=== PATIENT | male | born 1930 | race Caucasian/White ===

== ENCOUNTER 2017-02-20 19:33 | Emergency (ER) | payer MEDICARE, BC ==
[~2017-02-20 19:33] MED LIST: ASAB PO; DORZOLAMIDE2 % OP; FLOMAX4 PO; GLUCOTRO10 PO; GLUCOTROL5 PO; GLUCPH PO; GLUCPH8 PO; LIPITOR10 PO; LOPID6 PO; METAMUCIL CAN7 OZ PO; MULTIPLE VIT PO; TRAVATAN OPH
[2017-02-20 21:17] LABS: BASOPHILS 0.3 %; BASOPHILS ABSOLUTE 0.02 10/3/uL (0.0-0.16); EOSINOPHILS 1.5 %; EOSINOPHILS ABSOLUTE 0.11 10/3/uL (0.0-0.53); ER CBC TAT 0 Hrs 08 Mins; HEMATOCRIT 34.7 % (40.0-51.0); IMMATURE GRANULOCYTES 0.1 %; IMMATURE GRANULOCYTES ABSOLUTE 0.01 10/3/uL (0.0-0.11); LYMPHOCYTES 32.5 %; LYMPHOCYTES ABSOLUTE 2.38 10/3/uL (0.67-4.30); MEAN CORPUS HGB CONC 34.6 g/dL (32.0-36.0); MEAN CORPUSCULAR HEMOGLOB 32.3 pg (26.0-34.0); MEAN CORPUSCULAR VOLUME 93.5 fL (80-100); MEAN PLATELET VOLUME 10.1 fL (9.2-13.0); MONOCYTES 11.7 %; MONOCYTES ABSOLUTE 0.86 10/3/uL (0.21-1.20); NEUTROPHILS 53.9 %; NEUTROPHILS ABSOLUTE 3.94 10/3/uL (2.02-8.40); PLATELET COUNT 253 10/3/uL (150-400); RBC DISTRIBUTION WIDTH 12.5 % (12.0-16.0); RED CELL COUNT 3.71 10/6/uL (4.7-6.1); WHITE BLOOD CELLS 7.3 10/3/uL (4.5-10.5)
[2017-02-20 21:18] LABS: MANUAL DIFF NO %
[2017-02-20 21:24] LABS: INTERNATIONAL NORMAL RATI 1.1 UNITS (-); PARTIAL THROMBO TIME 26.7 SEC (22.5-37.2); PROTIME (NOT ORD) 14.3 SEC (12.0-14.5)
[2017-02-20 21:33] LABS: A/G RATIO 0.9 (0.7-1.9); ALBUMIN 3.4 G/DL (3.5-5.0); ALKALINE PHOSPHATASE 77 U/L (45-117); BUN (BLOOD UREA NITROGEN) 19 MG/DL (6-23); CALCIUM, SERUM 8.8 MG/DL (8.5-10.4); CHLORIDE, SERUM 102 MMOL/L (96-112); CO2 (CARBON DIOXIDE) 27 MMOL/L (24-34); CREATININE 1.28 MG/DL (0.70-1.30); GFR AFRICAN AMERICAN 58 ML/MIN (>=60); GFR NON AFRICAN AMERICAN 50 ML/MIN (>=60); GLOBULIN 3.8 G/DL (2.5-4.1); POTASSIUM, SERUM 3.8 MMOL/L (3.5-5.3); SGOT(AST) 19 U/L (5-40); SGPT(ALT) 16 U/L (5-65); SODIUM, SERUM 137 MMOL/L (135-148); TOTAL BILIRUBIN 0.3 MG/DL (0-1.2); TOTAL PROTEIN 7.2 G/DL (6.0-8.5)
[2017-02-20 21:34] LABS: DIRECT BILIRUBIN < 0.1 MG/DL (0.0-0.4); GLUCOSE, SERUM 144 MG/DL (60-99); INDIRECT BILIRUBIN(NOT ORDER) 0.2 MG/DL (0.1-0.9)
[2017-02-20 21:38] LABS: LACTATE 1.5 MMOL/L (0.3-2.4)
[2017-02-20 21:51] LABS: PROCALCITONIN < 0.05 ng/mL (<0.5)
[2017-02-20 22:12] LABS: ASCORBIC ACID (UR NOT ORDER) NEG (NEG); BILIRUBIN, URINE NEGATIVE (NEG); ER URINALYSIS TAT 0 Hrs 15 Mins; KETONE, URINE NEGATIVE (NEG); LEUKOCYTE ESTERASE(NOT OR NEG (NEG); NITRITE (URINE) NEG (NEG); WBC (NOT ORDERED) (RFLEX) < 1 (0-5)
[2017-03-05] MEDS ORDERED: PROSCAR5 PO (16:02)
[2017-03-05] MEDS ORDERED: ULTRAM50 PO (16:03)
[2017-03-05] MEDS ORDERED: PRILO PO (16:04)
== END 2017-02-20 23:21 | disposition home or self-care (01) ==
LOC: ER 19:33
PROVIDERS: Nurse Practitioner
DX: K40.90 Unilateral inguinal hernia, without obstruction or gangrene, not specified as recurrent (principal); K80.20 Calculus of gallbladder without cholecystitis without obstruction; E11.9 Type 2 diabetes mellitus without complications; D64.9 Anemia, unspecified; Z87.442 Personal history of urinary calculi; Z79.84 Long term (current) use of oral hypoglycemic drugs; Z79.82 Long term (current) use of aspirin; Z79.899 Other long term (current) drug therapy
CPT/HCPCS: 74176; 80053; 81001; 82248; 83605; 83690; 84145; 85025; 85610; 85730; 87040; 93005; 96374; 96375; 99284; J2405

== ENCOUNTER 2017-03-11 10:00 | Observation (INO) | payer MEDICARE, BC ==
[2017-03-08 08:15] LABS: BASOPHILS 0.2 %; BASOPHILS ABSOLUTE 0.02 10/3/uL (0.0-0.16); EOSINOPHILS 1.3 %; EOSINOPHILS ABSOLUTE 0.11 10/3/uL (0.0-0.53); HEMATOCRIT 37.4 % (40.0-51.0); HEMOGLOBIN 12.7 g/dL (13.6-17.8); IMMATURE GRANULOCYTES 0.1 %; IMMATURE GRANULOCYTES ABSOLUTE 0.01 10/3/uL (0.0-0.11); LYMPHOCYTES 33.6 %; LYMPHOCYTES ABSOLUTE 2.82 10/3/uL (0.67-4.30); MEAN CORPUSCULAR HEMOGLOB 31.8 pg (26.0-34.0); MEAN CORPUSCULAR VOLUME 93.7 fL (80-100); MEAN PLATELET VOLUME 10.6 fL (9.2-13.0); MONOCYTES 9.8 %; MONOCYTES ABSOLUTE 0.82 10/3/uL (0.21-1.20); NEUTROPHILS ABSOLUTE 4.62 10/3/uL (2.02-8.40); PLATELET COUNT 267 10/3/uL (150-400); RBC DISTRIBUTION WIDTH 12.4 % (12.0-16.0); RED CELL COUNT 3.99 10/6/uL (4.7-6.1); WHITE BLOOD CELLS 8.4 10/3/uL (4.5-10.5)
[2017-03-08 08:16] LABS: MANUAL DIFF NO %
[2017-03-08 08:40] LABS: A/G RATIO 1.2 (0.7-1.9); ALBUMIN 3.8 G/DL (3.5-5.0); ALKALINE PHOSPHATASE 74 U/L (45-117); BUN (BLOOD UREA NITROGEN) 15 MG/DL (6-23); CALCIUM, SERUM 9.3 MG/DL (8.5-10.4); CHLORIDE, SERUM 103 MMOL/L (96-112); CO2 (CARBON DIOXIDE) 30 MMOL/L (24-34); GFR AFRICAN AMERICAN 79 ML/MIN (>=60); GFR NON AFRICAN AMERICAN 68 ML/MIN (>=60); GLOBULIN 3.3 G/DL (2.5-4.1); GLUCOSE, SERUM 118 MG/DL (60-99); POTASSIUM, SERUM 4.5 MMOL/L (3.5-5.3); SGOT(AST) 17 U/L (5-40); SGPT(ALT) 18 U/L (5-65); SODIUM, SERUM 138 MMOL/L (135-148); TOTAL BILIRUBIN 0.5 MG/DL (0-1.2); TOTAL PROTEIN 7.1 G/DL (6.0-8.5)
--- NOTE | ~2017-03-11 | PREOPHP ---
PreOp History and Physical [address] [address] NAME: AIDEN ALEXANDER : 30 STATUS : PRE [facility] PAT#: [id number] AGE: 86 ADM/REG DATE : MR#: [id number] REPORT SERV DATE: 03/11/17 DICTATED BY: JACQUELINE GROSS III DATE: 03/03/17 REPORT STATUS : Draft TRANSCRIBED BY: MODL DATE: 03/03/17 HISTORY OF PRESENT ILLNESS: This 86-year-old male comes to the operating room for open repair of symptomatic right inguinal hernia. The patient complains of a right inguinal hernia. He noticed this after lifting a heavy garbage can on 02/20/2017. He required evaluation in the emergency room. The hernia was reduced, but he still has continued pain and discomfort associated with this hernia. He comes now for open right inguinal hernia repair. PAST MEDICAL HISTORY: 1. Diabetes mellitus. 2. Hypertension. 3. Hyperlipidemia. 4. Glaucoma. 5. Prostatic hypertrophy. 6. Right bundle-branch block. MEDICATIONS: Metformin; atorvastatin; aspirin; glipizide; tamsulosin; omeprazole; finasteride; and tramadol. ALLERGIES: NONE. PAST SURGICAL HISTORY: Includes hemorrhoidectomy. FAMILY HISTORY: Positive for diabetes and heart disease. SOCIAL HISTORY: No history of tobacco or alcohol use. REVIEW OF SYSTEMS: The patient's 14-point review of systems is otherwise unremarkable. PHYSICAL EXAMINATION: OBJECTIVE: GENERAL: This is a male, in no acute distress. He is alert and oriented x3. VITAL SIGNS: Blood pressure 107/62, pulse 88, and temperature 97.7. HEENT: Unremarkable. NEUROLOGIC: Cranial nerves 2 through 12 are normal. LUNGS: Clear. CARDIAC: Normal. ABDOMEN: Soft. Nontender. No masses. In the right groin is a moderate size inguinal hernia. This is reducible. The left groin is normal. EXTREMITIES: Normal with no edema. LABORATORY DATA: CT scan of the abdomen and pelvis confirms a right inguinal hernia. ASSESSMENT: 1. An 86-year-old male with symptomatic right inguinal hernia, with recent transient PreOp History and Physical [address] [address] NAME: AIDEN ALEXANDER : 30 STATUS : PRE [facility] PAT#: [id number] AGE: 86 ADM/REG DATE : MR#: [id number] REPORT SERV DATE: 03/11/17 DICTATED BY: JACQUELINE GROSS III DATE: 03/03/17 REPORT STATUS : Draft TRANSCRIBED BY: SARAH DATE: 03/03/17 incarceration requiring evaluation in the emergency room. 2. Diabetes mellitus. 3. Arthritis. 4. Hyperlipidemia. 5. Hypertension. 6. Prostatic hypertrophy. 7. Right bundle-branch block. PLAN: The patient comes to the operating room now for open right inguinal hernia repair. This procedure, the risks, benefits, and alternatives, including not limited to the risk for bleeding, infection, pain, swelling, scarring, or deformity to the area, seroma formation, hematoma formation, recurrence of the hernia, nerve injury, chronic paresthesia, pain in the thigh, scrotum, or groin, chronic neuralgia or neuroma, and unforeseen complications including deep venous thrombosis, pulmonary embolus, myocardial infarction, stroke, pneumonia, , have been explained to the patient prior to surgery. The expected length of recovery has been explained. The possibility of urinary retention has been explained. The patient's questions have been answered. He clearly understands the risks and agrees to the surgery as planned. RHValdemar/SARAH Jacqueline Gross III, M.D. / [phone]
--- NOTE | ~2017-03-11 | OP ---
Record Of Operation [facility] [address] [place]. [address] NAME: AIDEN ALEXANDER : 30 STATUS : DIS [facility] PAT#: [id number] AGE: 86 ADM/REG DATE : 03/11/17 MR#: [id number] REPORT SERV DATE: 03/12/17 DICTATED BY: JACQUELINE GROSS III DATE: 03/11/17 REPORT STATUS : Draft TRANSCRIBED BY: MODGraeme DATE: 03/11/17 DATE OF PROCEDURE: 03/11/2017 PREOPERATIVE DIAGNOSIS: Symptomatic right inguinal hernia. POSTOPERATIVE DIAGNOSIS: Symptomatic right inguinal hernia. PROCEDURE: Open Zayda tension-free repair of right inguinal hernia with Prolene mesh. SURGEON: Jacqueline Gross M.D. ANESTHESIA: General intubation. COMPLICATIONS: None. ESTIMATED BLOOD LOSS: Less than 5 mL. SPECIMENS: Hernia sac. DRAINS: None. LAP AND SPONGE COUNT: Correct x3. BRIEF HISTORY: This is an 86-year-old male presented with a symptomatic right inguinal hernia. It was felt that open repair of this hernia was indicated. This procedure, the risks, benefits, and alternatives, including not limited to the risk for bleeding, infection, pain, swelling, scarring, deformity to the area, seroma formation, hematoma formation, recurrence of the hernia, nerve injury, chronic paresthesia, or pain in the thigh, scrotum, or groin, chronic neuralgia or neuroma, and unforeseen complications including deep venous thrombosis, pulmonary embolus, myocardial infarction, stroke, pneumonia, and , were fully explained to the patient's family prior to surgery. The expected length of recovery was explained. The patient had questions which were answered. He fully understood the risks and agreed to surgery as planned. DESCRIPTION OF PROCEDURE: After being properly identified and I had discussed risks of surgery with the patient's family again in the preoperative area, and after identifying the hernia with him in the preoperative area, the patient was taken to the operating room and placed in the supine position on the operating room table. General anesthesia was administered and he was intubated without difficulty. The abdomen was prepped and draped sterilely in the usual fashion. After an appropriate "time-out" per [employer] standards, a small oblique incision was made in the right groin from the pubic tubercle medially towards the anterior superior iliac spine laterally. The incision was continued through the subcutaneous tissue. Hemostasis was controlled with cautery. The incision was continued down to the external oblique fascia. This fascia was opened along the direction of its fibers, so as to open the external inguinal ring. Using sharp dissection, the underlying ilioinguinal and genitofemoral nerves were identified and carefully isolated and protected Record Of Operation [facility] [address] [place]. [address] NAME: AIDEN ALEXANDER : 30 STATUS : DIS [facility] PAT#: [id number] AGE: 86 ADM/REG DATE : 03/11/17 MR#: [id number] REPORT SERV DATE: 03/12/17 DICTATED BY: JACQUELINE GROSS III DATE: 03/11/17 REPORT STATUS : Draft TRANSCRIBED BY: SARAH DATE: 03/11/17 to one side. Using sharp dissection, the spermatic cord and its contents were mobilized from the floor of the canal and a Shaheed drain was placed beneath it. There was noted to be an indirect hernia dissecting along the spermatic cord. There was no direct component to the hernia. Using sharp dissection, the hernia sac was dissected free from the spermatic cord. The hernia sac was opened. The abdominal contents were reduced. The hernia sac was dissected down to the internal ring. The hernia sac was ligated with a 2-0 silk pursestring and doubly ligated with 2-0 silk suture. It was amputated above these sutures. A Prolene mesh was then selected and cut to the appropriate size for the floor of the canal. A slit was made in the mesh laterally to incorporate the spermatic cord. The mesh was secured to the floor of the canal with a running 2-0 Prolene suture, which was placed between the edge of the mesh and shelving edge of the inguinal ligament laterally and the edge of the mesh and internal oblique and transversalis fascia medially. The mesh was secured lateral to the cord as well. Upon completion of this, the mesh laid nicely on the floor of the canal. It was not twisted or kinked in any way. It was not under any tension. A small finger could be placed through the internal ring so that the spermatic vessels have not been unduly tightened or narrowed. Hemostasis was assured. The external oblique fascia was closed with a running 2-0 silk suture. The subcutaneous tissue was closed with a running 3-0 chromic suture and the skin was closed with a running subcuticular 4-0 Monocryl stitch. The incision was injected with 0.5% Marcaine. Dressings were applied. Anesthesia was reversed and the patient was taken to the recovery room in stable condition. He tolerated the procedure well. His family was informed results of surgery. The patient will be admitted to the hospital overnight for observation. His family was advised that he should keep his wound clean and dry for 48 hours. That he should not drive for three to four days after surgery or while using narcotics. That he should resume his usual medications and that should not perform any heavy lifting for four to five weeks. RHJ/MODL Jacqueline Gross III, M.D. / [id number] CC: Jacqueline Gross III, M.D.
[~2017-03-11 10:00] MED LIST changes: +PRILO PO; +PROSCAR5 PO; +ULTRAM50 PO
[2017-03-12] MEDS ORDERED: PERCOCET 7.5/321 TAB PO (08:06)
== END 2017-03-12 10:48 | disposition home or self-care (01) ==
LOC: SDC 10:00 → SDC/OF 14:48 → 5SO 15:28
PROVIDERS: Surgery
PROC: 0YU50JZ Supplement Right Inguinal Region with Synthetic Substitute, Open Approach (ICD-10-PCS; principal; 2017-03-11 12:15)
DX: K40.90 Unilateral inguinal hernia, without obstruction or gangrene, not specified as recurrent (principal); E11.9 Type 2 diabetes mellitus without complications; E78.5 Hyperlipidemia, unspecified; Z79.899 Other long term (current) drug therapy; Z79.82 Long term (current) use of aspirin; Z79.84 Long term (current) use of oral hypoglycemic drugs
CPT/HCPCS: 71020; 80053; 82962; 85025; 88302; 93005; A9270-GY; C1781; G0378; J0690; J2710; J3010